=== PATIENT | female | born 1965 | race Caucasian/White ===

== ENCOUNTER 2021-01-22 11:37 | Outpatient (CLI) | payer OTHER | END 2021-01-22 11:38 | disposition home or self-care (01) | LOC: CSHRAD 11:37 | PROVIDERS: ATTEND Psychiatry & Neurology Neurology | DX: M47.10 Other spondylosis with myelopathy, site unspecified (principal); M47.816 Spondylosis without myelopathy or radiculopathy, lumbar region; M41.86 Other forms of scoliosis, lumbar region | CPT/HCPCS: 71046; 72100 ==